=== PATIENT | female | born 1990 | race Hispanic/Latino ===

== ENCOUNTER 2016-10-05 02:00 | Emergency (ER) | payer SELFPAY ==
[2016-10-05 02:17] VITALS: BP 135/78; PULSE 81; RESP 16; TEMP 98.1; O2SAT 99
--- NOTE | 2016-10-05 02:27 | ED PDOC ---
HPI: Psych/Substance Abuse Time Seen by Provider: 10/05/16 02:19 Chief Complaint (Nursing): Alcohol Ingestion Chief Complaint (Provider): Alcohol ingestion History Per: Patient, EMS History/Exam Limitations: no limitations Onset/Duration Of Symptoms: Mins (patient was found in the back of a cab just prior to arrival) Current Symptoms Are (Timing): Still Present Severity: Moderate Associated Symptoms: denies: Suicidal Thoughts, Suicidal Plan Additional Complaint(s): 26 year old female with a pertinent medical history of depression is brought into the ED by ambulance for intoxication. She was found passed out in the back of a cab. She admits to drinking heavily tonight and denies having any suicidal ideations and homicidal ideations. She states that she wants tot go home. She denies having any injuries and drug use. She denies having any complaints at this times. PMD: not provided Past Medical History Reviewed: Historical Data, Nursing Documentation, Vital Signs Vital Signs: Last Vital Signs Temp 98.1 F 10/05/16 02:12 Pulse 81 10/05/16 02:12 Resp 16 10/05/16 02:12 BP 135/78 10/05/16 02:12 Pulse Ox 99 10/05/16 02:12 - Medical History PMH: Depression - Surgical History Surgical History: No Surg Hx - Family History Family History: States: Unknown Family Hx - Social History Current smoker - smoking cessation education provided: No Alcohol: Other (on the weekends) Drugs: Denies - Allergies Allergies/Adverse Reactions: Allergies Allergy/AdvReac Type Severity Reaction Status Date / Time codeine Allergy ITCHING Verified 10/05/16 02:17 Review of Systems ROS Statement: Except As Marked, All Systems Reviewed And Found Negative Psych: Negative for: Suicidal ideation, Other (no homicidal ideations) Physical Exam - Reviewed Nursing Documentation Reviewed: Yes Vital Signs Reviewed: Yes - Physical Exam Appears: Positive for: Well, Non-toxic, No Acute Distress (patient is tearful, but in no acute distress) Head Exam: Positive for: ATRAUMATIC, NORMOCEPHALIC Skin: Positive for: Normal Color, Warm, Dry Eye Exam: Positive for: EOMI, PERRL, Conjunctival injection Neck: Positive for: Normal, Supple Cardiovascular/Chest: Positive for: Regular Rate, Rhythm Respiratory: Positive for: Normal Breath Sounds. Negative for: Respiratory Distress Neurologic/Psych: Positive for: Alert, Oriented (3x), Mood/Affect (sad affect), Gait (steady). Negative for: Motor/Sensory Deficits - ECG O2 Sat by Pulse Oximetry: 99 (RA) Pulse Ox Interpretation: Normal Medical Decision Making Medical Decision Makin:19 Initial impression: 26 year old female with alcohol intoxication. 2:27 Patient's sister is in the ER to bring patient home. She reports that she will escort her home and be with her at home for the rest of the evening. Scribe Attestation: Documented by Eli Parada, acting as a scribe for Isidra Johnson MD. Provider Scribe Attestation: All medical record entries made by the Scribe were at my direction and personally dictated by me. I have reviewed the chart and agree that the record accurately reflects my personal performance of the history, physical exam, medical decision making, and the department course for this patient. I have also personally directed, reviewed, and agree with the discharge instructions and disposition. Disposition - Clinical Impression Clinical Impression: Alcohol abuse with intoxication Counseled Patient/Family Regarding: Diagnosis, Need For Followup - Disposition Referrals: Alcoholics Anonymous [Outside] Disposition: Routine/Home Disposition Time: :27 Condition: STABLE Instructions: Alcohol Intoxication (ED), Abuse of Alcohol (ED)
== END 2016-10-05 03:33 | disposition home or self-care (01) ==
LOC: H.ER 02:00
DX: F10.129 Alcohol abuse with intoxication, unspecified (principal)

== ENCOUNTER 2017-12-20 15:23 | Emergency (ER) | payer SELFPAY ==
[2017-12-20 15:29] VITALS: PULSE 85; RESP 17; TEMP 98.4; O2SAT 98
--- NOTE | 2017-12-20 16:29 | ED PDOC ---
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 Patient switched rings from her left hand to right and soon after noted moderate swelling to the 4th digit. She went to urgent care where the attempt at removing the rings resulted in worsening swelling. Offers no other medical complaints. PMD: none provided Past Medical History Reviewed: Historical Data, Nursing Documentation, Vital Signs Vital Signs: Last Vital Signs Temp 98.4 F 12/20/17 15:26 Pulse 85 12/20/17 15:26 Resp 17 12/20/17 15:26 BP Pulse Ox 98 12/20/17 15:26 - Medical History PMH: Depression - Surgical History Surgical History: No Surg Hx - Family History Family History: States: Unknown Family Hx - Allergies Allergies/Adverse Reactions: Allergies Allergy/AdvReac Type Severity Reaction Status Date / Time codeine Allergy ITCHING Verified 10/05/16 02:17 Review of Systems ROS Statement: Except As Marked, All Systems Reviewed And Found Negative Musculoskeletal: Positive for: Hand Pain (right hand pain and swelling around 2 rings) Physical Exam - Reviewed Nursing Documentation Reviewed: Yes Vital Signs Reviewed: Yes - Physical Exam Appears: Positive for: Non-toxic, No Acute Distress Head Exam: Positive for: ATRAUMATIC, NORMAL INSPECTION, NORMOCEPHALIC Skin: Positive for: Normal Color, Warm, Dry Eye Exam: Positive for: EOMI, Normal appearance, PERRL Cardiovascular/Chest: Positive for: Regular Rate, Rhythm. Negative for: Murmur Respiratory: Positive for: Normal Breath Sounds. Negative for: Wheezing, Respiratory Distress Neurologic/Psych: Positive for: Alert, Oriented (x 3). Negative for: Motor/ Sensory Deficits - ECG O2 Sat by Pulse Oximetry: 98 (RA) Pulse Ox Interpretation: Normal Medical Decision Making Medical Decision Makin:00 --Upon arrival, patient was given ice to lessen the swelling. Then, 1 ring was removed using ring cutter here in the ED; patient removed the other ring using [place]. Scribe Attestation: Documented by Thelma Hdz, acting as a scribe for Tunde Morejon PA-C Provider Scribe Attestation: All medical record entries made by the Scribe were at my direction and personally dictated by me. I have reviewed the chart and agree that the record accurately reflects my personal performance of the history, physical exam, medical decision making, and the department course for this patient. I have also personally directed, reviewed, and agree with the discharge instructions and disposition. Disposition - Clinical Impression Clinical Impression: Swollen finger - Patient ED Disposition Is Patient to be Admitted: No - Disposition Disposition: Routine/Home Disposition Time: 16:28 Condition: FAIR Instructions: Contusion (DC) Forms: [employer] (Latvian)
== END 2017-12-20 16:32 | disposition home or self-care (01) ==
LOC: H.ER 15:23
DX: M79.646 Pain in unspecified finger(s) (principal)